=== PATIENT | female | born 1955 | race Caucasian/White ===

== ENCOUNTER 2018-12-25 13:01 | Day surgery (SDC) | payer OTHER ==
[~2018-12-25] VITALS: Ht 160 cm; Wt 75.7 kg
[~2018-12-25 13:01] MED LIST: ALPR.25 PO; ESCI10 PO; IBUPROFEN200 MG PO; LETR2.5 PO; Phentermine HCl15 MG PO
[2018-12-25] MEDS ORDERED: Vitamin D2000 UNIT (13:28)
[2018-12-25] MEDS ORDERED: TUMS500 MG (13:29)
--- NOTE | 2018-12-25 13:37 | NUR ---
12/25/18 1337 Annmarie Krishna V PT RESTING IN BED, SIDE RAILS IN PLACE, CALL LIGHT WITHIN REACH, VSS. PT TEACHING COMPLETED. PT DENIES PAIN, DISCOMFORT, AND QUESTIONS AT THIS TIME.
== END 2018-12-25 16:10 | disposition home or self-care (01) ==
LOC: ORSCSDS 13:01
PROVIDERS: Ophthalmology
PROC: 081Y0J3 Bypass Left Lacrimal Duct to Nasal Cavity with Synthetic Substitute, Open Approach (ICD-10-PCS; principal; 2018-12-25 14:30)
DX: H04.552 Acquired stenosis of left nasolacrimal duct (principal)
CPT/HCPCS: J1100; J2250; J2405; J3010